=== PATIENT | male | born 1955 | race Caucasian/White ===

== ENCOUNTER 2016-06-18 22:26 | Emergency (ER) | payer OTHER ==
[~2016-06-18] VITALS: Ht 172.7 cm; Wt 95.3 kg
[2016-06-18] MEDS ORDERED: NOHOMEMEDICATIONS (22:34)
[2016-06-19 00:26] VITALS: BP 142/69
== END 2016-06-19 00:27 | disposition home or self-care (01) ==
LOC: ER 22:26
DX: S09.8XXA Other specified injuries of head, initial encounter (principal); Z91.048 Other nonmedicinal substance allergy status; X58.XXXA Exposure to other specified factors, initial encounter; Y93.66 Activity, soccer; Y92.89 Other specified places as the place of occurrence of the external cause; Y99.8 Other external cause status